=== PATIENT | female | born 1985 | race Native Hawaiian/Other Pacific Islander ===

== ENCOUNTER 2019-05-11 20:20 | Emergency (ER) | payer BC ==
--- NOTE | 2019-05-11 21:03 | Event Note ---
ED Screening Note Date of service: 05/11/19 Time: 21:00 ED Screening Note: 33 y o female presents with mid chest pain x last week states she feels heart palpation currently prescribed metropolol and zoloft last week This initial assessment/diagnostic orders/clinical plan/treatment(s) is/are sub ject to change based on patients health status, clinical progression and re- assessment by fellow clinical providers in the ED. Further treatment and workup at subsequent clinical providers discretion. Patient/guardian urged not to elope from the ED as their condition may be serious if not clinically assessed and managed. Initial orders include: ekg completed acc eval
[2019-05-11 21:28] LABS: Basophils # (Auto) 0.1 K/mm3 (0.0-0.1); Basophils % (Auto) 0.6 % (0.0-1.8); Eosinophils % (Auto) 0.4 % (0.0-4.3); Hematocrit 43.5 % (30.3-42.9); Hemoglobin 15.2 gm/dl (10.1-14.3); Mean Corpuscular HGB Conc 35 % (30-34); Mean Corpuscular Volume 87 fl (79-97); Monocytes # (Auto) 0.7 K/mm3 (0.0-0.8); Platelet Count 340 K/mm3 (140-440); Red Cell Distribution Width 13.2 % (13.2-15.2)
[2019-05-11 21:38] LABS: INR 0.97 (0.87-1.13)
[2019-05-11 21:39] LABS: Partial Thromboplastin Time 26.4 Sec. (24.2-36.6)
[2019-05-11 21:53] LABS: Alanine Aminotransferase 24 units/L (7-56); Albumin 4.8 g/dL (3.9-5); BUN/Creatinine Ratio 13; Blood Urea Nitrogen 8 mg/dL (7-17); Calcium 9.2 mg/dL (8.4-10.2); Hemolysis Index 11
--- NOTE | 2019-05-11 22:52 | XRay Report ---
CHEST 2 VIEWS 2133 INDICATION / CLINICAL INFORMATION: Chest Pain COMPARISON: 05/24/2015 FINDINGS: SUPPORT DEVICES: None. HEART / MEDIASTINUM: No significant abnormality. LUNGS / PLEURA: No significant pulmonary or pleural abnormality. No pneumothorax. ADDITIONAL FINDINGS: No significant additional findings. IMPRESSION: No significant acute abnormality Signer Name: Ernie Street MD Signed: 05/11/2019 10:47 PM Workstation Name: [id number]
[2019-05-12] MEDS ORDERED: SODIUM CHLORIDE 0.9% 1000 ML 1,000 ML IV ONE (00:20)
[2019-05-12] MEDS ORDERED: LORazepam 1 MG TAB PO ONE (00:20)
--- NOTE | 2019-05-12 00:26 | Emergency Department Report ---
ED Chest Pain HPI - General Chief Complaint: Chest Pain Stated Complaint: GENERAL SICKNESS Time Seen by Provider: 05/11/19 21:00 Source: patient Mode of arrival: Ambulatory Limitations: No Limitations - History of Present Illness Initial Comments: Katie is a very pleasant 33-year-old female with history of anxiety who presents with palpitations and warmth of feeling all over for one week. She feels her heart racing. She is afraid that she is going to . She also had shortness of breath. She was evaluated at [facility]. She had lab tests and CT scan at outside hospital. She was referred to physician Dr. Lisa Heredia who prescribed sertraline and metoprolol. While on these medications she continues to have shortness of breath palpitations and warm feeling throughout her body. She feels jittery. No hx of DM or thyroid dz. MD Complaint: chest pain -: Gradual, week(s) (1) Onset: during rest Severity: moderate Quality: tightness Consistency: constant Improves With: nothing Worsens With: nothing Context: recent illness, new medications re: dyspnea, sense of impending doom Treatments Prior to Arrival: other (new medications metoprolol and sertraline) - Related Data Previous Rx's Medication Instructions Recorded Last Taken Type Butalbit/Acetamin/Caff/Codeine 1 each PO Q4HR PRN #12 capsule 10/08/13 Unknown Rx [Fioricet-Cod 38-94-309-40 Cap] Ondansetron [Zofran Odt] 4 mg PO Q6H PRN #8 tab.rapdis 10/08/13 Unknown Rx Ibuprofen [Motrin] 800 mg PO Q8HR PRN #30 tablet 05/24/15 Unknown Rx traMADol [Ultram 50 MG tab] 50 mg PO Q6HR PRN #20 tablet 05/24/15 Unknown Rx Allergies Allergy/AdvReac Type Severity Reaction Status Date / Time No Known Allergies Allergy Verified 05/11/19 20:23 Heart Score - HEART Score History: Slightly suspicious EKG: Non-specific Age: < 45 Risk factors: No known risk factors Troponin: < normal limit HEART Score: 1 ED Review of Systems ROS: Stated complaint: GENERAL SICKNESS Other details as noted in HPI Comment: All other systems reviewed and negative Constitutional: denies: fever, malaise Respiratory: shortness of breath Cardiovascular: chest pain, palpitations Psychiatric: anxiety ED Past Medical Hx - Past Medical History Previous Medical History?: Yes Additional medical history: "abd probs" - Surgical History Hx Cholecystectomy: Yes - Family History Family history: diabetes, hypertension - Social History Smoking Status: Never Smoker Substance Use Type: None - Medications Home Medications: Home Medications Medication Instructions Recorded Confirmed Last Taken Type Butalbit/Acetamin/Caff/Codeine 1 each PO Q4HR PRN #12 capsule 10/08/13 Unknown Rx [Fioricet-Cod [id number] Cap] Ondansetron [Zofran Odt] 4 mg PO Q6H PRN #8 tab.rapdis 10/08/13 Unknown Rx Ibuprofen [Motrin] 800 mg PO Q8HR PRN #30 tablet 05/24/15 Unknown Rx traMADol [Ultram 50 MG tab] 50 mg PO Q6HR PRN #20 tablet 05/24/15 Unknown Rx ED Physical Exam - General Limitations: No Limitations General appearance: alert, in no apparent distress, anxious - Head Head exam: Present: atraumatic, normocephalic - Eye Eye exam: Present: normal appearance - ENT ENT exam: Present: mucous membranes moist - Neck Neck exam: Present: normal inspection, full ROM - Respiratory Respiratory exam: Present: normal lung sounds bilaterally. Absent: respiratory distress, wheezes, rales, rhonchi - Cardiovascular Cardiovascular Exam: Present: normal rhythm, tachycardia, normal heart sounds. Absent: systolic murmur, diastolic murmur, rubs, gallop - GI/Abdominal GI/Abdominal exam: Present: soft, normal bowel sounds. Absent: distended, tenderness, guarding, rebound - Extremities Exam Extremities exam: Present: normal inspection - Back Exam Back exam: Present: normal inspection - Neurological Exam Neurological exam: Present: alert, oriented X3 - Psychiatric Psychiatric exam: Present: normal affect, normal mood - Skin Skin exam: Present: warm, dry, intact, normal color. Absent: rash ED Course Vital Signs 05/11/19 05/12/19 05/12/19 20:58 01:00 01:01 Temperature 98.4 F Pulse Rate 131 H 123 H Respiratory 18 22 22 Rate Blood Pressure 169/114 Blood Pressure 157/93 [Left] O2 Sat by Pulse 100 100 Oximetry QUANG score - Quang Score Age > 65: (0) No Aspirin use within the Past 7 Days: (0) No 3 or more CAD Risk Factors: (0) No 2 or more Angina events in past 24 hrs: (0) No Known CAD with more than 50% Stenosis: (0) No Elevated Cardiac Markers: (0) No ST Deviation Greater than 0.5mm: (0) No QUANG Score: 0 ED Medical Decision Making - Lab Data Result diagrams: 05/11/19 21:09 05/11/19 21:09 Laboratory Results - last 24 hr 05/11/19 05/11/19 05/11/19 21:09 21:09 21:09 WBC 10.1 RBC 5.00 Hgb 15.2 H Hct 43.5 H MCV 87 MCH 30 MCHC 35 H RDW 13.2 Plt Count 340 Lymph % (Auto) 20.0 [place] % (Auto) 7.0 Eos % (Auto) 0.4 Baso % (Auto) 0.6 Lymph # 2.0 [place] # 0.7 Eos # 0.0 Baso # 0.1 Seg Neutrophils % 72.0 H Seg Neutrophils # 7.3 PT 12.6 INR 0.97 APTT 26.4 Sodium 141 Potassium 3.4 L Chloride 105.1 Carbon Dioxide 18 L Anion Gap 21 BUN 8 Creatinine 0.6 L Estimated GFR > 60 BUN/Creatinine Ratio 13 Glucose 106 H Calcium 9.2 Total Bilirubin 0.30 AST 26 ALT 24 Alkaline Phosphatase 75 Troponin T < 0.010 Total Protein 8.3 H Albumin 4.8 Albumin/Globulin Ratio 1.4 - EKG Data 05/12/19 00:25 EKG obtained 2035 Sinus tachycardia rate 120 beats a minute normal axis normal intervals. inferior Q waves no ST elevation no signs of ischemia 05/12/19 00:30 I compared EKG to EKG obtained at 2014 Q waves are new today tachycarida not seen - Radiology Data Radiology results: report reviewed Chest x-ray no acute process according to radiology impression - Medical Decision Making Katie presents with palpitations. Physical exam notable for tachycardia as well as compared to an EKG. After IV fluids and Ativan heart rate improved to 103 beats a minute. D-dimer within normal limits. CBC chemistry within normal limits. TSH within normal. I do not suspect pulmonary embolism or thyroid sto rm. No indication of pneumonia. She will need outpatient cardiac evaluation. I have provided cardiac referral. I encouraged her to return to her PCP. DDX: anxiety, dehydration, drug effect, structural heart disease Critical care attestation.: If time is entered above; I have spent that time in minutes in the direct care of this critically ill patient, excluding procedure time. ED Disposition Clinical Impression: Chest pain, Tachycardia Disposition: DC-01 TO HOME OR SELFCARE Is pt being admited?: No Does the pt Need Aspirin: No Condition: Stable Instructions: Chest Pain (ED), Palpitations (ED) Referrals: PRIMARY CARE, [Primary Care Provider] - FERCHO FLORES MD [Staff Physician] - 3-5 Days Forms: Work/School Release Form(ED)
[2019-05-12] MEDS ORDERED: IBUPROFEN 800 MG TAB PO ONE (02:04)
[2019-05-12 04:26] VITALS: BP 157/94
== END 2019-05-12 04:26 | disposition home or self-care (01) ==
LOC: ED 20:20
DX: R07.89 Other chest pain (principal); R00.0 Tachycardia, unspecified; F41.9 Anxiety disorder, unspecified; Z79.899 Other long term (current) drug therapy; Z79.1 Long term (current) use of non-steroidal anti-inflammatories (NSAID)
CPT/HCPCS: 36415; 71046; 80053; 84443; 84484; 85025; 85379; 85610; 85730; 93005; 93010; 99284; J7030